=== PATIENT | male | born 1995 | race Caucasian/White ===

== ENCOUNTER 2021-03-05 20:59 | Emergency (ER) | payer BC | END 2021-03-05 22:50 | disposition home or self-care (01) | LOC: MADERS 20:59 | DX: S20.219A Contusion of unspecified front wall of thorax, initial encounter (principal); R21 Rash and other nonspecific skin eruption; R60.0 Localized edema; W50.0XXA Accidental hit or strike by another person, initial encounter | CPT/HCPCS: 71046; 71120 ==